=== PATIENT | female | born 1950 | race Caucasian/White ===

== ENCOUNTER 2018-01-19 08:34 | Emergency (ER) | payer MEDICARE, MEDICAID ==
[~2018-01-19] VITALS: Ht 157.5 cm; Wt 57.7 kg
[~2018-01-19 08:34] MED LIST: ASPI-1265 PO; BIMA2.5D OP; BRIM5DRO RIGHTEYE; CETI-102 PO; CHOL400T PO; CYAN100097 PO; CYCL-1 PO; FLUT16SP2 BOTHNARES; HYDR-565 PO; MELA3TAB PO; MONT10TA21 PO; OSC500T PO; PRAV20TA4 PO; VITAMIN C PO; ZINC50TA37 PO
[2018-01-19 08:55] VITALS: BP 120/74
[2018-01-19] MEDS ORDERED: TRAM50TA2 PO (09:51)
[2018-01-19] MEDS: HYDROcodone/acetaminophen 10/325mg tab PO ONE (10:28)
== END 2018-01-19 10:37 | disposition home or self-care (01) ==
LOC: ER 08:34
DX: R07.81 Pleurodynia (principal); M54.5 Low back pain; E78.00 Pure hypercholesterolemia, unspecified; K21.9 Gastro-esophageal reflux disease without esophagitis; G89.29 Other chronic pain; Z98.890 Other specified postprocedural states; Z79.899 Other long term (current) drug therapy; Z88.5 Allergy status to narcotic agent; Z79.82 Long term (current) use of aspirin; W19.XXXA Unspecified fall, initial encounter; Y93.89 Activity, other specified; Y92.89 Other specified places as the place of occurrence of the external cause; Y99.9 Unspecified external cause status
CPT/HCPCS: 72100; 99284

== ENCOUNTER 2018-03-05 08:46 | Day surgery (SDC) | payer MEDICARE, MEDICAID ==
[~2018-03-05] VITALS: Ht 157.5 cm; Wt 56.4 kg
[2018-03-05] MEDS ORDERED: MIDAZolam 5mg/5ml vial ONE (09:01)
[2018-03-05] MEDS ORDERED: fentaNYL/PF 50MCG/1 ML 2ML syringe ONE (09:01)
[2018-03-05 09:13] VITALS: BP 139/78
[2018-03-05 10:25] VITALS: BP 113/73
[2018-03-05 10:35] VITALS: BP 107/74
[2018-03-05 10:45] VITALS: BP 109/66
[2018-03-05 10:55] VITALS: BP 122/66
== END 2018-03-05 11:05 | disposition home or self-care (01) ==
LOC: GI LAB 08:46
PROVIDERS: ATTEND Internal Medicine Gastroenterology
DX: K57.30 Diverticulosis of large intestine without perforation or abscess without bleeding (principal); K51.80 Other ulcerative colitis without complications; I49.9 Cardiac arrhythmia, unspecified; K21.9 Gastro-esophageal reflux disease without esophagitis; G89.29 Other chronic pain; E78.00 Pure hypercholesterolemia, unspecified; Z88.5 Allergy status to narcotic agent; Z87.891 Personal history of nicotine dependence; Z96.651 Presence of right artificial knee joint; Z87.2 Personal history of diseases of the skin and subcutaneous tissue; Z79.891 Long term (current) use of opiate analgesic; Z79.82 Long term (current) use of aspirin; Z88.8 Allergy status to other drugs, medicaments and biological substances; Z98.890 Other specified postprocedural states; Z79.899 Other long term (current) drug therapy
CPT/HCPCS: 45380; G0500; J2250; J3010; J7030; 88305; A4620

== ENCOUNTER 2018-04-02 15:06 | Emergency (ER) | payer MEDICARE, MEDICAID ==
[~2018-04-02] VITALS: Ht 157.5 cm; Wt 56.8 kg
[~2018-04-02 15:06] MED LIST changes: -ASPI-1265 PO
[2018-04-02 15:11] VITALS: BP 140/78
[2018-04-02] MEDS ORDERED: triamcinolone acetonide 40mg/ml inj IM ONE (15:20)
== END 2018-04-02 15:46 | disposition home or self-care (01) ==
LOC: ER 15:06
DX: J30.2 Other seasonal allergic rhinitis (principal); E78.00 Pure hypercholesterolemia, unspecified; K21.9 Gastro-esophageal reflux disease without esophagitis; G89.29 Other chronic pain; Z88.6 Allergy status to analgesic agent; Z88.8 Allergy status to other drugs, medicaments and biological substances; Z79.899 Other long term (current) drug therapy
CPT/HCPCS: 96372; 99283; J3301

== ENCOUNTER 2018-09-04 08:44 | Observation (INO) | payer MEDICARE, MEDICAID ==
[~2018-09-04] VITALS: Ht 157.5 cm; Wt 54.7 kg
[~2018-09-04 08:44] MED LIST changes: +HYDR-4353 PO; -HYDR-565 PO
[2018-09-04 09:22] LABS: BASOPHILS % (AUTO) 0.3 % (0-1); EOSINOPHILS # (AUTO) 0.5 X10'3 (0-0.9); EOSINOPHILS % (AUTO) 6.1 % (0-6); HEMATOCRIT 38.5 % (35.0-45.0); LYMPHOCYTES # (AUTO) 1.4 X10'3 (1.1-4.8); MEAN CORPUSCULAR HEMOGLOBIN 30.7 PG (27.0-31.0); MEAN CORPUSCULAR HGB CONC 33.7 % (33.0-36.5); MEAN PLATELET VOLUME 8.1 FL (7.4-10.4); MONOCYTES # (AUTO) 0.6 X10'3 (0-0.9); NEUTROPHILS # (AUTO) 5.1 X10'3 (1.8-7.7); NEUTROPHILS % (AUTO) 67.6 % (42-75); PLATELET COUNT 208 X10'3 (140-440); RED BLOOD COUNT 4.24 X10'6 (4.20-5.60); RED CELL DISTRIBUTION WIDTH 13.4 % (11.5-14.5); WHITE BLOOD COUNT 7.5 X10'3 (4.5-11.0)
[2018-09-04 09:30] LABS: PARTIAL THROMBOPLASTIN TIME 28 SECONDS (22-32); PROTHROMBIN TIME 10.1 SECONDS (9.0-12.0)
[2018-09-04 09:31] LABS: ALANINE AMINOTRANSFERASE 16 U/L (12-78); ALBUMIN 4.4 G/DL (3.4-5.0); ALBUMIN/GLOBULIN RATIO 1.4 (1.1-1.5); ALKALINE PHOSPHATASE 69 IU/L (46-116); ANION GAP 8 (8-16); ASPARTATE AMINO TRANSFERASE 22 U/L (10-37); BILIRUBIN,TOTAL 0.3 MG/DL (0.1-1.0); BLOOD UREA NITROGEN 10 MG/DL (7-18); BUN/CREATININE RATIO 14.5 (6.6-38.0); CALCIUM 9.3 MG/DL (8.5-10.1); CHLORIDE 104 MMOL/L (99-107); CREATININE 0.69 MG/DL (0.40-0.90); GLUCOSE 106 MG/DL (70-104); POTASSIUM 3.4 MMOL/L (3.5-5.1); SODIUM 142 MMOL/L (135-145); TOTAL CARBON DIOXIDE 29.6 MMOL/L (24-32); TOTAL PROTEIN 7.5 G/DL (6.4-8.2); eGFR 85 ML/MIN
[2018-09-04] MEDS ORDERED: OMEP40CA37 PO (11:20)
[2018-09-04] MEDS ORDERED: BIOT10004 PO (11:20)
[2018-09-04] MEDS ORDERED: BACL10TA2 PO (11:20)
[2018-09-04] MEDS ORDERED: normal saline 1000ml 1,000 ML IV SCH (11:22)
[2018-09-04] MEDS ORDERED: potassium Cl 20 mEq SR tablet PO PRN (11:25)
[2018-09-04] MEDS ORDERED: acetaminophen 325mg tablet PO PRN ×2 (11:25)
[2018-09-04] MEDS ORDERED: magnesium 4gm in 100ml NS 100 ML IV PRN (11:25)
[2018-09-04] MEDS ORDERED: aminophylline 250mg/10ml inj. IV PRN (11:25)
[2018-09-04] MEDS ORDERED: potassium Cl 40MEQ/NS 500ml 500 ML IV PRN ×2 (11:25)
[2018-09-04] MEDS ORDERED: magnesium 1gm/100ml D5W IVPB 100 ML IV PRN (11:25)
[2018-09-04] MEDS ORDERED: magnesium Cl slow-release 64mg tablet PO PRN (11:25)
[2018-09-04] MEDS ORDERED: magnesium hydroxide 30ml (MOM) UD suspension PO PRN (11:25)
[2018-09-04] MEDS ORDERED: metoprolol tartrate 1mg/ml inj IV PRN (11:25)
[2018-09-04] MEDS ORDERED: nitroGLYCERIN 0.4mg SUBLingual tab SL PRN (11:25)
[2018-09-04] MEDS ORDERED: ondansetron/PF 4mg/2ml inj IV PRN (11:25)
[2018-09-04] MEDS ORDERED: mag hydrox/Alum hydrox/simeth 30ml oral suspension PO PRN (11:25)
[2018-09-04] MEDS ORDERED: regadenoson 0.4mg/5ml syringe IV ONE ×2 (11:25→11:40)
[2018-09-04] MEDS ORDERED: HYDROcodone/acetaminophen 5mg/325mg tablet PO PRN (11:45)
[2018-09-04] MEDS ORDERED: cetirizine 10mg tablet PO PRN (11:55)
[2018-09-04] MEDS: potassium Cl 20 mEq SR tablet PO PRN ×3 (11:57→23:05)
[2018-09-04 13:00] VITALS: BP 152/86
[2018-09-04 15:00] VITALS: BP 136/71
[2018-09-04] MEDS: HYDROcodone/acetaminophen 5mg/325mg tablet PO PRN ×2 (16:46→21:07)
[2018-09-04 18:00] VITALS: BP 134/71
[2018-09-04] MEDS: brimonidine 0.2% 5 ML ophthalmic drops RIGHTEYE SCH (20:00)
[2018-09-04] MEDS: albuterol 2.5 MG/3 ML nebule NEB SCH ×4 (20:00→23:17)
[2018-09-04] MEDS ORDERED: latanoprost 0.005% 2.5ml ophthalmic drops EACHEYE SCH (21:00)
[2018-09-05] VITALS (14 sets, daily range): BP systolic 114–142; BP diastolic 72–81
[2018-09-05] MEDS: HYDROcodone/acetaminophen 5mg/325mg tablet PO PRN ×3 (01:23→11:35)
[2018-09-05] MEDS: albuterol 2.5 MG/3 ML nebule NEB SCH ×3 (03:25→11:05)
[2018-09-05 06:56] LABS: BASOPHILS % (AUTO) 0.2 % (0-1); EOSINOPHILS # (AUTO) 0.3 X10'3 (0-0.9); EOSINOPHILS % (AUTO) 5.7 % (0-6); HEMATOCRIT 36.4 % (35.0-45.0); HEMOGLOBIN 12.2 g/dl (12.0-16.0); LYMPHOCYTES # (AUTO) 0.8 X10'3 (1.1-4.8); LYMPHOCYTES % (AUTO) 16.4 % (21-51); MEAN CORPUSCULAR HEMOGLOBIN 30.7 PG (27.0-31.0); MEAN CORPUSCULAR HGB CONC 33.6 % (33.0-36.5); MEAN CORPUSCULAR VOLUME 91.5 FL (78-98); MEAN PLATELET VOLUME 8.3 FL (7.4-10.4); MONOCYTES # (AUTO) 0.4 X10'3 (0-0.9); MONOCYTES % (AUTO) 7.8 % (2-12); NEUTROPHILS # (AUTO) 3.5 X10'3 (1.8-7.7); NEUTROPHILS % (AUTO) 69.9 % (42-75); PLATELET COUNT 167 X10'3 (140-440); RED BLOOD COUNT 3.98 X10'6 (4.20-5.60); RED CELL DISTRIBUTION WIDTH 13.6 % (11.5-14.5)
[2018-09-05 07:06] LABS: ALBUMIN 3.7 G/DL (3.4-5.0); ANION GAP 9 (8-16); BLOOD UREA NITROGEN 12 MG/DL (7-18); BUN/CREATININE RATIO 18.2 (6.6-38.0); CALCIUM 8.9 MG/DL (8.5-10.1); CHLORIDE 106 MMOL/L (99-107); CREATININE 0.66 MG/DL (0.40-0.90); GLUCOSE 110 MG/DL (70-104); MAGNESIUM 1.9 MG/DL (1.5-2.4); POTASSIUM 4.1 MMOL/L (3.5-5.1); SODIUM 143 MMOL/L (135-145); TOTAL CARBON DIOXIDE 28.5 MMOL/L (24-32); eGFR 89 ML/MIN
[2018-09-05] MEDS ORDERED: pantoprazole 40mg Tablet.DR PO SCH (07:30)
[2018-09-05] MEDS: brimonidine 0.2% 5 ML ophthalmic drops RIGHTEYE SCH (07:59)
[2018-09-05] MEDS ORDERED: enoxaparin 40mg/0.4ml syringe SQ SCH (08:00)
[2018-09-05] MEDS ORDERED: atorvastatin 10mg tablet PO SCH (08:00)
[2018-09-05] MEDS ORDERED: K and/or MAG REPLACEMENT MC SCH (08:00)
[2018-09-05] MEDS ORDERED: fluticasone nasal spray 16GM bottle NS SCH (08:00)
[2018-09-05] MEDS ORDERED: montelukast 10mg tablet PO SCH (08:00)
[2018-09-05] MEDS ORDERED: CefTRIAXone 2gm/D5W 50ml 50 ML IV SCH (08:00)
[2018-09-05] MEDS ORDERED: aminophylline inj. 10 ML IV ONE (09:41)
[2018-09-05] MEDS ORDERED: regadenoson 0.4mg/5ml syringe IV ONE (09:42)
[2018-09-05] MEDS ORDERED: AZIT500T2 PO (12:02)
== END 2018-09-05 14:05 | disposition home or self-care (01) ==
LOC: ER 08:44 → ED HOLD 11:22 → PCU 3S 13:40
PROVIDERS: ADMIT Internal Medicine; ATTEND Internal Medicine
DX: R07.89 Other chest pain (principal); J30.2 Other seasonal allergic rhinitis; E78.5 Hyperlipidemia, unspecified; G89.4 Chronic pain syndrome; J06.9 Acute upper respiratory infection, unspecified; I49.9 Cardiac arrhythmia, unspecified; J44.9 Chronic obstructive pulmonary disease, unspecified; K21.9 Gastro-esophageal reflux disease without esophagitis; E78.00 Pure hypercholesterolemia, unspecified; Z87.891 Personal history of nicotine dependence; Z88.9 Allergy status to unspecified drugs, medicaments and biological substances
CPT/HCPCS: 36415; 71045; 78452; 80048; 80053; 83735; 84484; 85025; 85610; 85730; 87070; 93005; 93017; 93306; 94640; 94760; 96365; 96372; 96375; 99285; A9500; G0378; J0280; J0696; J1650; J7030

== ENCOUNTER 2019-04-05 09:53 | Emergency (ER) | payer MEDICARE, MEDICAID ==
[~2019-04-05] VITALS: Ht 157.5 cm; Wt 52.7 kg
[~2019-04-05 09:53] MED LIST changes: +BACL10TA2 PO; +BIOT10004 PO; -CYCL-1 PO; -MELA3TAB PO; +OMEP40CA37 PO; -VITAMIN C PO; -ZINC50TA37 PO; +ZINC50TA67 PO
[2019-04-05] MEDS ORDERED: normal saline 1000ML IV soln IV ONE (10:00)
[2019-04-05 10:19] LABS: BASOPHILS % (AUTO) 0.5 % (0-1); EOSINOPHILS # (AUTO) 0.5 X10'3 (0-0.9); EOSINOPHILS % (AUTO) 11.1 % (0-6); HEMATOCRIT 33.9 % (35.0-45.0); HEMOGLOBIN 11.4 g/dl (12.0-16.0); LYMPHOCYTES # (AUTO) 1.2 X10'3 (1.1-4.8); LYMPHOCYTES % (AUTO) 25.9 % (21-51); MEAN CORPUSCULAR HEMOGLOBIN 29.6 PG (27.0-31.0); MEAN CORPUSCULAR HGB CONC 33.5 g/dL (33.0-36.5); MEAN CORPUSCULAR VOLUME 88.4 FL (78-98); MEAN PLATELET VOLUME 7.6 FL (7.4-10.4); MONOCYTES # (AUTO) 0.7 X10'3 (0-0.9); MONOCYTES % (AUTO) 15.2 % (2-12); NEUTROPHILS # (AUTO) 2.2 X10'3 (1.8-7.7); NEUTROPHILS % (AUTO) 47.3 % (42-75); PLATELET COUNT 186 X10'3 (140-440); RED BLOOD COUNT 3.84 X10'6 (4.20-5.60); RED CELL DISTRIBUTION WIDTH 13.7 % (11.5-14.5); WHITE BLOOD COUNT 4.6 X10'3 (4.5-11.0)
[2019-04-05] MEDS ORDERED: ondansetron/PF 4mg/2ml inj IV ONE (10:20)
[2019-04-05] MEDS ORDERED: morphine 4 MG/ML inj SYRINge IV PRN (10:20)
[2019-04-05 10:28] LABS: ALANINE AMINOTRANSFERASE 16 U/L (12-78); ALBUMIN 3.6 G/DL (3.4-5.0); ALBUMIN/GLOBULIN RATIO 1.1 (1.1-1.5); ALKALINE PHOSPHATASE 67 IU/L (46-116); ANION GAP 5 (8-16); ASPARTATE AMINO TRANSFERASE 20 U/L (10-37); BILIRUBIN,TOTAL 0.2 MG/DL (0.1-1.0); BLOOD UREA NITROGEN 9 MG/DL (7-18); BUN/CREATININE RATIO 14.1 (6.6-38.0); CHLORIDE 103 MMOL/L (99-107); CREATININE 0.64 MG/DL (0.40-0.90); GLUCOSE 106 MG/DL (70-104); POTASSIUM 3.8 MMOL/L (3.5-5.1); SODIUM 138 MMOL/L (135-145); TOTAL PROTEIN 6.9 G/DL (6.4-8.2); eGFR > 90 ML/MIN
[2019-04-05 10:43] LABS: PARTIAL THROMBOPLASTIN TIME 37 SECONDS (22-32)
[2019-04-05 10:56] LABS: PLATELET ESTIMATE NORMAL; TOTAL CELLS COUNTED 100
[2019-04-05 11:01] LABS: CLARITY,URINE CLEAR (Clear); COLOR,URINE YELLOW (Yellow); GLUCOSE, URINE NEGATIVE (Neg); KETONES,URINE TRACE mg/dl (Neg); LEUKOCYTE ESTERASE ,URINE NEGATIVE (Neg); NITRITES, URINE NEGATIVE (Neg); OCCULT BLOOD,URINE MODERATE (Neg); PH,URINE 6.5 (4.8-8.0); PROTEIN,URINE TRACE mg/dl (Neg); UROBILINOGEN,URINE 0.2 E.U/dL (0.2-1.0)
[2019-04-05 11:06] LABS: UA COLLECTION TYPE CLN CATCH MIDSTREAM
[2019-04-05 11:08] LABS: MUCUS STRANDS MANY /LPF (Neg); SQUAMOUS EPITHELIAL CELL,UR FEW /LPF (FEW); TRANSITIONAL EPI CELLS,URINE FEW /HPF
[2019-04-05 11:09] LABS: BACTERIA,URINE NONE SEEN /HPF (Neg); WBC,URINE NONE SEEN /HPF (0-4)
[2019-04-05 12:27] VITALS: BP 131/95
[2019-04-07 12:15] LABS: OCCULT BLOOD STOOL POSITIVE (Neg)
== END 2019-04-05 12:30 | disposition home or self-care (01) ==
LOC: ER 09:53
DX: K92.2 Gastrointestinal hemorrhage, unspecified (principal); R19.7 Diarrhea, unspecified; E78.00 Pure hypercholesterolemia, unspecified; J44.9 Chronic obstructive pulmonary disease, unspecified; K21.9 Gastro-esophageal reflux disease without esophagitis; G89.29 Other chronic pain; Z98.890 Other specified postprocedural states; Z88.5 Allergy status to narcotic agent; Z88.8 Allergy status to other drugs, medicaments and biological substances; Z79.899 Other long term (current) drug therapy
CPT/HCPCS: 36415; 74176; 80053; 81001; 82272; 85025; 85610; 85730; 86885; 86900; 86901; 93005; 96360; 99284; J2405; J7030

== ENCOUNTER 2019-11-16 07:48 | Day surgery (SDC) | payer MEDICARE, MEDICAID ==
[2019-11-16] VITALS (13 sets, daily range): BP systolic 107–162; BP diastolic 64–86
[~2019-11-16] VITALS: Ht 157.5 cm; Wt 50.3 kg
[~2019-11-16 07:48] MED LIST changes: -CETI-102 PO; +CETI-90 PO; +OMEP40CA13 PO; -OMEP40CA37 PO
[2019-11-16] MEDS ORDERED: normal saline 1000ml 1,000 ML IV PRN (08:20)
[2019-11-16] MEDS ORDERED: midazolam 2 mg/2 ml injection ONE (08:34)
[2019-11-16] MEDS ORDERED: fentaNYL/PF 50MCG/1 ML 2ML syringe ONE ×2 (08:34→09:07)
[2019-11-16 08:50] LABS: BASOPHILS % (AUTO) 0.3 % (0-1); EOSINOPHILS # (AUTO) 0.1 X10'3 (0-0.9); EOSINOPHILS % (AUTO) 1.4 % (0-6); HEMATOCRIT 41.5 % (35.0-45.0); HEMOGLOBIN 13.8 g/dl (12.0-16.0); LYMPHOCYTES # (AUTO) 1.4 X10'3 (1.1-4.8); LYMPHOCYTES % (AUTO) 32.6 % (21-51); MEAN CORPUSCULAR HEMOGLOBIN 29.5 PG (27.0-31.0); MEAN CORPUSCULAR HGB CONC 33.2 g/dL (33.0-36.5); MEAN CORPUSCULAR VOLUME 88.9 FL (78-98); MEAN PLATELET VOLUME 8.9 FL (7.4-10.4); MONOCYTES # (AUTO) 0.5 X10'3 (0-0.9); MONOCYTES % (AUTO) 12.2 % (2-12); NEUTROPHILS # (AUTO) 2.3 X10'3 (1.8-7.7); NEUTROPHILS % (AUTO) 53.5 % (42-75); PLATELET COUNT 175 X10'3 (140-440); RED BLOOD COUNT 4.67 X10'6 (4.20-5.60); RED CELL DISTRIBUTION WIDTH 14.4 % (11.5-14.5); WHITE BLOOD COUNT 4.2 X10'3 (4.5-11.0)
[2019-11-16] MEDS ORDERED: HYDROcodone/acetaminophen 10/325mg tab PO ONE (09:35)
[2019-11-16 09:54] LABS: ALBUMIN 4.9 G/DL (3.4-5.0); ANION GAP 10 (8-16); BLOOD UREA NITROGEN 13 MG/DL (7-18); BUN/CREATININE RATIO 17.3 (6.6-38.0); CALCIUM 9.1 MG/DL (8.5-10.1); CHLORIDE 102 MMOL/L (99-107); CREATININE 0.75 MG/DL (0.40-0.90); GLUCOSE 103 MG/DL (70-104); POTASSIUM 3.6 MMOL/L (3.5-5.1); SODIUM 139 MMOL/L (135-145); TOTAL CARBON DIOXIDE 27.5 MMOL/L (24-32); eGFR 77 ML/MIN
== END 2019-11-16 11:40 | disposition home or self-care (01) ==
LOC: SSTAY O 07:48
PROVIDERS: ATTEND Radiology Diagnostic Radiology
DX: C25.9 Malignant neoplasm of pancreas, unspecified (principal); C78.7 Secondary malignant neoplasm of liver and intrahepatic bile duct; F41.9 Anxiety disorder, unspecified; K21.9 Gastro-esophageal reflux disease without esophagitis; E78.5 Hyperlipidemia, unspecified; M89.49 Other hypertrophic osteoarthropathy, multiple sites; M85.80 Other specified disorders of bone density and structure, unspecified site; Z79.899 Other long term (current) drug therapy; Z88.8 Allergy status to other drugs, medicaments and biological substances; Z88.5 Allergy status to narcotic agent
CPT/HCPCS: 36415; 47000; 76942; 80048; 85025; J2250; J3010; J7030; 99152; 99153

== ENCOUNTER 2019-12-01 10:49 | Day surgery (SDC) | payer MEDICARE, MEDICAID ==
[~2019-12-01] VITALS: Ht 157.5 cm; Wt 48.3 kg
[2019-12-01] MEDS ORDERED: normal saline 1000ml 1,000 ML IV SCH ×2 (11:25→13:28)
[2019-12-01] MEDS ORDERED: VITA1CAP (11:42)
[2019-12-01] MEDS ORDERED: METH750T3 (11:42)
[2019-12-01] MEDS ORDERED: ATOR20TA PO (11:42)
[2019-12-01] MEDS ORDERED: heparin sodium, porcine/PF 100unit/ml 5ML syringe ICATH ONE (13:30)
[2019-12-01] MEDS ORDERED: LIDOcaine 1% 30ml preserv. free vial SQ ONE (13:30)
[2019-12-01] MEDS ORDERED: fentaNYL/PF 50MCG/1 ML 2ML syringe IV PRN (13:30)
[2019-12-01] MEDS ORDERED: midazolam 2 mg/2 ml injection IV PRN (13:30)
[2019-12-01] MEDS ORDERED: heparin sodium, porcine/PF 100unit/ml 5ML syringe ONE (13:38)
[2019-12-01] MEDS ORDERED: midazolam 2 mg/2 ml injection ONE (13:38)
[2019-12-01] MEDS ORDERED: LIDOcaine 1%/PF 5ML 10 MG/ML VIAL ONE (13:38)
[2019-12-01] MEDS ORDERED: fentaNYL/PF 50MCG/1 ML 2ML syringe ONE ×2 (13:39→14:21)
[2019-12-01 15:00] VITALS: BP 132/72
[2019-12-01 15:15] VITALS: BP 130/77
[2019-12-01 15:30] VITALS: BP 106/65
[2019-12-01 15:45] VITALS: BP 144/80
[2019-12-01 16:00] VITALS: BP 100/65
== END 2019-12-01 16:27 | disposition home or self-care (01) ==
LOC: SSTAY O 10:49
PROVIDERS: ATTEND Radiology Vascular & Interventional Radiology
DX: C25.9 Malignant neoplasm of pancreas, unspecified (principal); C78.7 Secondary malignant neoplasm of liver and intrahepatic bile duct; E78.5 Hyperlipidemia, unspecified; M41.9 Scoliosis, unspecified; K21.9 Gastro-esophageal reflux disease without esophagitis; Z88.5 Allergy status to narcotic agent; Z88.1 Allergy status to other antibiotic agents; M85.80 Other specified disorders of bone density and structure, unspecified site; Z96.659 Presence of unspecified artificial knee joint; Z98.890 Other specified postprocedural states; Z79.899 Other long term (current) drug therapy; Z88.8 Allergy status to other drugs, medicaments and biological substances; Z87.891 Personal history of nicotine dependence
CPT/HCPCS: 36561; 76937; 77001; 99152; 99153; J1642; J2250; J3010; J7030; C1769; C1788; C1894